=== PATIENT | male | born 1985 | race Caucasian/White ===

== ENCOUNTER 2018-11-27 22:12 | Emergency (ER) | payer BC, OTHER ==
[~2018-11-27] VITALS: Ht 185.4 cm; Wt 79.4 kg
[~2018-11-27 22:12] MED LIST: NOHOMEMEDICATIONS; NORCO 5-325 TA1 EACH PO; SENNA-S TABLET1 EACH PO
[2018-11-27 23:36] LABS: ABSOLUTE NEUTROPHILS 5.8 thou/uL (1.4-8.2); BASOPHILS 0.7 % (0.0-2.0); EOSINOPHILS 1.8 % (0.0-3.0); HEMATOCRIT 47.3 % (42.0-52.0); HEMOGLOBIN 16.4 gm/dL (14.0-18.0); LYMPHOCYTES 31.6 % (24.0-44.0); MCH 29.3 pg (26.0-34.0); MCHC 34.7 g/dL (28.0-37.0); MCV 84.4 fL (80.0-100.0); MONOCYTES 6.7 % (1.0-8.0); PLATELET COUNT 171 thou/uL (150-400); POLYS 59.2 % (36.0-66.0); RDW 13.8 % (10.5-14.5); WBC 9.9 thou/uL (4.0-11.0)
[2018-11-27 23:45] LABS: CALCIUM 8.9 mg/dL (8.5-10.1); CREATININE 1.2 mg/dL (0.7-1.3); POTASSIUM 4.1 mmol/L (3.5-5.1)
[2018-11-28 01:43] VITALS: BP 127/86
== END 2018-11-28 01:47 | disposition home or self-care (01) ==
LOC: ER 22:12
PROVIDERS: Emergency Medicine
DX: B34.9 Viral infection, unspecified (principal); R53.1 Weakness; Z90.49 Acquired absence of other specified parts of digestive tract; Z98.890 Other specified postprocedural states; Z88.8 Allergy status to other drugs, medicaments and biological substances

== ENCOUNTER 2020-09-26 20:53 | Emergency (ER) | payer OTHER ==
[~2020-09-26] VITALS: Ht 188 cm; Wt 84.8 kg
[2020-09-26 21:29] LABS: ABSOLUTE NEUTROPHILS 5.8 thou/uL (1.4-8.2); BASOPHILS 0.8 % (0.0-2.0); EOSINOPHILS 2.2 % (0.0-3.0); HEMATOCRIT 46.6 % (42.0-52.0); HEMOGLOBIN 15.8 gm/dL (14.0-18.0); LYMPHOCYTES 30.4 % (24.0-44.0); MCH 29.3 pg (26.0-34.0); MCHC 33.8 g/dL (28.0-37.0); MCV 86.7 fL (80.0-100.0); MONOCYTES 6.7 % (1.0-8.0); PLATELET COUNT 190 thou/uL (150-400); POLYS 59.9 % (36.0-66.0); RBC 5.38 mil/uL (4.50-6.00); RDW 13.2 % (10.5-14.5); WBC 9.6 thou/uL (4.0-11.0)
[2020-09-26 21:48] LABS: ANION GAP 10 mmol/L (7-16); BUN 21 mg/dL (7-18); CALCIUM 9.4 mg/dL (8.5-10.1); CHLORIDE 102 mmol/L (98-107); CO2 29 mmol/L (21-32); CREATININE 1.4 mg/dL (0.7-1.3); GLUCOSE 103 mg/dL (74-106); POTASSIUM 4.2 mmol/L (3.5-5.1); SODIUM 141 mmol/L (136-145); TROPONIN-I <0.06 ng/mL (<0.06)
[2020-09-26 23:13] VITALS: BP 132/92
--- NOTE | 2020-09-27 07:24 | EKG ---
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
== END 2020-09-26 23:35 | disposition home or self-care (01) ==
LOC: ER 20:53
PROVIDERS: Nurse Practitioner
DX: R07.89 Other chest pain (principal); R06.02 Shortness of breath; R53.83 Other fatigue; Z90.89 Acquired absence of other organs; Z90.49 Acquired absence of other specified parts of digestive tract

== ENCOUNTER → 2020-10-01 | Outpatient (CLI) | payer OTHER ==
[~2020-10-01] MED LIST changes: +CELECOXIB200 MG PO; +CYCLOBENZAPRINE10 MG PO; +HYDROCODON-ACE1 EAC7 PO; +PROTONIX40 M2 PO
== END ==
LOC: SJCVCIMAG 10:25
PROVIDERS: ATTEND Internal Medicine
DX: R07.9 Chest pain, unspecified (principal); R53.83 Other fatigue; M79.602 Pain in left arm

== ENCOUNTER 2020-10-06 10:27 | Emergency (ER) | payer OTHER ==
[~2020-10-06] VITALS: Ht 188 cm; Wt 81.7 kg
[~2020-10-06 10:27] MED LIST changes: -CELECOXIB200 MG PO; -CYCLOBENZAPRINE10 MG PO; -HYDROCODON-ACE1 EAC7 PO; -PROTONIX40 M2 PO
[2020-10-06] MEDS ORDERED: CELECOXIB200 MG PO (10:35)
[2020-10-06] MEDS ORDERED: PROTONIX40 M2 PO (10:35)
[2020-10-06] MEDS ORDERED: CYCLOBENZAPRINE10 MG PO (10:36)
[2020-10-06 11:21] LABS: ABSOLUTE NEUTROPHILS 6.3 thou/uL (1.4-8.2); BASOPHILS 0.8 % (0.0-2.0); EOSINOPHILS 1.7 % (0.0-3.0); HEMATOCRIT 46.9 % (42.0-52.0); HEMOGLOBIN 15.9 gm/dL (14.0-18.0); LYMPHOCYTES 25.4 % (24.0-44.0); MCH 29.5 pg (26.0-34.0); MCV 86.8 fL (80.0-100.0); MONOCYTES 7.3 % (1.0-8.0); POLYS 64.8 % (36.0-66.0); RDW 13.3 % (10.5-14.5); WBC 9.7 thou/uL (4.0-11.0)
[2020-10-06 11:37] LABS: ANION GAP 8 mmol/L (7-16); BUN 16 mg/dL (7-18); CALCIUM 9.5 mg/dL (8.5-10.1); CHLORIDE 104 mmol/L (98-107); CO2 28 mmol/L (21-32); CREATININE 1.3 mg/dL (0.7-1.3); GLUCOSE 109 mg/dL (74-106); POTASSIUM 4.9 mmol/L (3.5-5.1); SODIUM 140 mmol/L (136-145)
[2020-10-06 11:46] LABS: ALBUMIN 4.2 g/dL (3.4-5.0); SGOT 28 U/L (15-37); SGPT 44 U/L (30-65); TOTAL BILIRUBIN 0.9 mg/dL (0.2-1.0); TOTAL PROTEIN 7.5 g/dL (6.4-8.2); TROPONIN-I <0.06 ng/mL (<0.06)
[2020-10-06] MEDS ORDERED: HYDROCODON-ACE1 EAC7 PO (12:44)
--- NOTE | 2020-10-06 12:53 | EKG ---
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 : 1985 Requested By: Franklyn Mxa Order Number: [id number] MD: Tor Garvin Measurements Intervals [place] Rate: 68 P: 33 SC: 151 QRS: 19 QRSD: 80 T: 11 QT: 385 QTc: 410 Interpretive Statements Sinus rhythm Baseline wander in lead(s) V2 Compared to ECG 09/26/2020 21:03:36 ST (T wave) deviation now present Electronically Signed On 10-06-2020 12:53:21 [employer]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
[2020-10-06 13:00] LABS: LARGE PLATELETS OCCASIONAL; PLATELET COUNT 178 thou/uL (150-400)
[2020-10-06 13:04] VITALS: BP 137/88
== END 2020-10-06 13:04 | disposition home or self-care (01) ==
LOC: ER 10:27
PROVIDERS: Emergency Medicine
DX: R09.1 Pleurisy (principal); R10.9 Unspecified abdominal pain; R06.02 Shortness of breath; Z90.49 Acquired absence of other specified parts of digestive tract; Z90.89 Acquired absence of other organs; Z79.899 Other long term (current) drug therapy

== ENCOUNTER 2021-04-07 16:01 | Emergency (ER) | payer OTHER ==
[~2021-04-07] VITALS: Ht 185.4 cm; Wt 87.1 kg
[2021-04-07 16:35] LABS: ABSOLUTE NEUTROPHILS 3.7 thou/uL (1.4-8.2); BASOPHILS 0.4 % (0.0-2.0); EOSINOPHILS 0.1 % (0.0-3.0); HEMATOCRIT 49.6 % (42.0-52.0); HEMOGLOBIN 17.1 gm/dL (14.0-18.0); LYMPHOCYTES 41.8 % (24.0-44.0); MCH 28.9 pg (26.0-34.0); MCHC 34.5 g/dL (28.0-37.0); MCV 83.8 fL (80.0-100.0); MONOCYTES 2.8 % (1.0-8.0); PLATELET COUNT 130 thou/uL (150-400); POLYS 54.9 % (36.0-66.0); RBC 5.92 mil/uL (4.50-6.00); RDW 14.8 % (10.5-14.5); WBC 6.8 thou/uL (4.0-11.0)
[2021-04-07 16:37] LABS: ANION GAP 7 mmol/L (7-16); BUN 14 mg/dL (7-18); CALCIUM 8.6 mg/dL (8.5-10.1); CHLORIDE 102 mmol/L (98-107); CO2 28 mmol/L (21-32); CREATININE 1.4 mg/dL (0.7-1.3); GLUCOSE 105 mg/dL (74-106); POTASSIUM 3.9 mmol/L (3.5-5.1); SODIUM 137 mmol/L (136-145)
[2021-04-07 16:46] LABS: TROPONIN-I <0.06 ng/mL (<0.06)
[2021-04-07 17:22] VITALS: BP 142/95
--- NOTE | 2021-04-08 07:17 | EKG ---
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
== END 2021-04-07 17:22 | disposition home or self-care (01) ==
LOC: ER 16:01
PROVIDERS: Nurse Practitioner
DX: R10.84 Generalized abdominal pain (principal); R06.02 Shortness of breath; R20.0 Anesthesia of skin; T50.8X5A Adverse effect of diagnostic agents, initial encounter; Z79.899 Other long term (current) drug therapy; Z90.89 Acquired absence of other organs; Y92.89 Other specified places as the place of occurrence of the external cause

== ENCOUNTER → 2021-04-07 | Outpatient (CLI) | payer OTHER ==
[~2021-04-07] MED LIST changes: +CELECOXIB200 MG PO; +CYCLOBENZAPRINE10 MG PO; +HYDROCODON-ACE1 EAC7 PO; +PROTONIX40 M2 PO
== END ==
LOC: CAT 13:49
PROVIDERS: ATTEND Nurse Practitioner
DX: K76.0 Fatty (change of) liver, not elsewhere classified (principal); R10.84 Generalized abdominal pain; R14.0 Abdominal distension (gaseous)